=== PATIENT | female | born 1955 | race Caucasian/White ===

== ENCOUNTER 2020-04-26 12:37 | Observation (INO) ==
[2020-04-26] MEDS ORDERED: 0.9 % Sodium Chloride 500 ML IVC ONE (12:51)
[2020-04-26 13:17] LABS: Basophils % 0.5 %; Eosinophils % 0.2 %; Hematocrit 39.9 % (35.3-44.9); Immature Granulocytes % 0.3 % (0-4); Lymphocytes # 1.4 K/mcL (0.6-4.6); Lymphocytes % 21.5 %; Mean Corpuscular HGB Conc 32.6 g/dL (31.6-35.5); Mean Corpuscular Hemoglobin 27.5 pg (28.0-33.3); Mean Corpuscular Volume 84.4 fL (83.0-100.0); Mean Platelet Volume 8.3 fL (9.4-12.4); Monocytes # 0.6 K/mcL (0.0-1.3); Monocytes % 8.4 %; Neutrophils # 4.6 K/mcL (1.6-8.9); Platelet Count 445 K/mcL (140-400); Red Blood Count 4.73 M/mcL (3.82-4.97); Red Cell Distribution Width 14.6 % (11.5-14.5); Segmented Neutrophils % 69.1 %; White Blood Count 6.6 K/mcL (4.3-11.1)
[2020-04-26 13:24] LABS: INR 1.8; Prothrombin Time 20.5 Seconds (9.4-12.1)
[2020-04-26 13:47] LABS: BUN/Creatinine Ratio 20 (6-26); Blood Urea Nitrogen 21 mg/dL (8-23); Calcium 10.1 mg/dL (8.6-10.3); Carbon Dioxide 26 mEq/L (23-29); Chloride 95 mEq/L (98-107); Creatine Kinase 1254 Units/L (30-223); Glucose 163 mg/dL (70-105); Osmolality,Calculated 289 (280-300); Potassium 3.5 mEq/L (3.5-5.1); Sodium 136 mEq/L (136-145); Troponin I < 0.03 ng/mL (< 0.04); eGFR For African Americans > 60 (> 60); eGFR For Non-African Americans 52 (> 60)
[2020-04-26] MEDS ORDERED: 0.9 % Sodium Chloride 1,000 ML IVC ONE (13:55)
[2020-04-26 15:01] LABS: Bilirubin,Urine Negative (Negative); Blood,Urine Negative (Negative); Clarity,Urine Clear (Clear); Color,Urine Light-Yellow (Yellow); Glucose,Urine (UA) Normal (Normal); Ketones,Urine Negative (Negative); Leukocyte Esterase,Urine Negative (Negative); Nitrite,Urine Negative (Negative); PH,Urine 6.5 pH Units (5.0-8.0); Protein,Urine Negative (Neg-Trace); Urobilinogen,Urine Normal (Normal)
[2020-04-26] MEDS ORDERED: Ondansetron 4 MG/2 ML VIAL IVP PRN (16:48)
[2020-04-26] MEDS ORDERED: Acetaminophen 325 MG TABLET PO PRN (16:48)
[2020-04-26 17:34] LABS: Amphetamine Screen,Urine Negative ng/mL (Cutoff=1000); Barbiturate Screen,Urine Negative ng/mL (Cutoff=200); Benzodiazepines Screen,Urine Negative ng/mL (Cutoff=200); Cannabinoid Screen,Urine Negative ng/mL (Cutoff = 50); Cocaine Screen,Urine Negative ng/mL (Cutoff= 300); Opiate Screen,Urine Negative ng/mL (Cutoff=300); Phencyclidine Screen,Urine Negative ng/mL (Cutoff=25)
[2020-04-26] MEDS: Gabapentin 300 MG CAPSULE PO SCH (19:54)
[2020-04-27 05:03] LABS: Hematocrit 33.9 % (35.3-44.9); Mean Corpuscular Hemoglobin 27.7 pg (28.0-33.3); Mean Corpuscular Volume 83.9 fL (83.0-100.0); Mean Platelet Volume 8.3 fL (9.4-12.4); Platelet Count 366 K/mcL (140-400); Red Blood Count 4.04 M/mcL (3.82-4.97); White Blood Count 6.1 K/mcL (4.3-11.1)
[2020-04-27 05:10] LABS: Hemoglobin 11.2 g/dL (11.5-15.4)
[2020-04-27 05:25] LABS: BUN/Creatinine Ratio 20 (6-26); Blood Urea Nitrogen 19 mg/dL (8-23); Calcium 9.1 mg/dL (8.6-10.3); Carbon Dioxide 27 mEq/L (23-29); Chloride 97 mEq/L (98-107); Chol/HDL Ratio 3.4 (0-4.9); Cholesterol 166 mg/dL (< 200); Creatine Kinase 885 Units/L (30-223); Glucose 120 mg/dL (70-105); HDL Cholesterol 49 mg/dL (40-59); LDL Cholesterol,Calculated 89 mg/dL (< 100); Magnesium 2.9 mg/dL (1.6-2.6); Osmolality,Calculated 283 (280-300); Phosphorous 3.5 mg/dL (2.7-4.5); Potassium 2.8 mEq/L (3.5-5.1); Sodium 135 mEq/L (136-145); Triglycerides 142 mg/dL (< 150); eGFR For African Americans > 60 (> 60); eGFR For Non-African Americans 59 (> 60)
[2020-04-27 05:37] LABS: Thyroid Stimulating Hormone 1.878 mcIU/mL (0.340-5.600)
[2020-04-27 06:57] LABS: Estimated Average Glucose 146 mg/dl; Hemoglobin A1C 6.7 %
[2020-04-27] MEDS ORDERED: amLODIPine 5 MG TABLET PO SCH (09:00)
[2020-04-27] MEDS: Gabapentin 300 MG CAPSULE PO SCH ×2 (09:58→15:04)
[2020-04-27 11:01] VITALS: BP 121/62
[2020-04-27] MEDS ORDERED: *HR* Rivaroxaban 10 MG TABLET PO SCH (17:00)
== END 2020-04-27 15:58 | disposition home health service (06) ==
LOC: 3BNU 12:37 → EMEROOARM 12:37 → SUATTDRO 15:24 → 3BNU 15:49
PROVIDERS: ADMIT Internal Medicine; ATTEND Internal Medicine